=== PATIENT | female | born 1990 | race Caucasian/White ===

== ENCOUNTER → 2023-07-16 | Emergency (ER) | payer OTHER, BC ==
[~2023-07-16] MED LIST: ASPIRIN 81 MG CHEWABLE TABLET ONE; KETOROLAC 30 MG/ML INJ ONE; LORazepam 2 MG/ML VIAL ONE; NA CHLORIDE 0.9% 0 ML ONE; NA CHLORIDE 0.9% 1,000 ML ONE
--- OUTSIDE RECORDS SUMMARY | 2023-07-16 08:20 | XMS REPORT | Continuity of Care Document ---
Author Name Unknown Address [address] [facility] [address] [place] [address] [facility] thconnect Address [address] [facility] [address] [place] [address] Care Team Providers Care Color Control Operator Name Role Phone BUCK CORTEZ Primary Care Physician Tae mike GC_SWHASLWC_NguyenC Attending Clinician UnavailCOLLIN Holland Attending Clinician Unavailable Collin White MD Attending Clinician [phone] Robert Russell NP Attending Clinician [phone] Lab, Ang - Db Attending Clinician Unavailable ROBERT RUSSELL Attending Clinician Unavailbritney Kayb, Adc Lab Main Attending Clinician UnavailRima Faith MD Attending Clinician [phone] RIMA RUTHERFORD Attending Clinician Unavailable VITALIY SPICER Attending Clinician Unavailable Vitaliy Spicer MD Attending Clinician [phone] Doctor Unassigned, [place] Attending Clinician U kat Stallings MA, September Attending Clinician Unavailab christel ZAMBRANO_SWHASLWC_NguyenC Admitting Clinician COLLIN Qureshi Admitting Clinician Unavailable Payers Payer Name Policy Type Policy Number Effective Date Expirati on Date Source [employer] [id number] 2022 00:00:00 [employer] COMM[employer] OF NETWORK [id number] 2022 00:00:00 Problems Condition Name Condition Details Condition Category Status Onset Date Resolution Date Last Treatment Date Treating Clinician Comments Source Threatened Threatened Disease Active - 00:00: 00 [facility] Encounter for Nexplanon removal Encounter for Nexplanon removal Disease Active 11-10 00:00: 00 [facility] Other general counseling and advice for contracept alaina management Other general counseling and advice for contracept alaina management Disease Active 11-10 00:00: 00 [facility] Allergies, Adverse Reactions, Alerts Allergy Name Allergy Type Status Severity Reaction(s) Onset Date Inactive Date Treating Clinician Comments Source Penicill ins Propensi ty to adverse reaction s Active Hives 02-14 00:00: 00 [facility] PENICILL INS Drug Class Active Hives 02-14 00:00: 00 [facility] Penicill ins Propensi ty to adverse reaction s Active Hives - 00:00: 00 [facility] Social History Social Habit Start Date Stop Date Quantity Comments Source History SDOH Alcohol Frequency [facility] History SDOH Alcohol Std Drinks [facility] History SDOH Alcohol Binge [facility] Exposure to SARS-CoV-2 (event) 2022-08-02 00:00:00 2022-08-12 14:04:00 Not sure [facility] Alcohol intake 2022-08-02 00:00:00 2022-08-02 00:00:00 Current drinker of alcohol (finding) [facility] Tobacco use and exposure 2022-03-10 00:00:00 2022-03-10 00:00:00 Smokeless tobacco non-user [facility] Alcohol Comment 2020-09-18 00:00:00 2020-09-18 00:00:00 occasional glass of wine [facility] Sex Assigned At 1990 00:00:00 1990 00:00:00 [facility] Smoking Status Start Date Stop Date Source Never smoked tobacco [facility] Medications Ordered Medication Name Filled Medication Name Start Date Stop Date Current Medication? Ordering Clinician Indication Dosage Frequency Signature (SIG) Comments Components Source norgestimat e-ethinyl estradioL 0.25-35 mg-mcg per tablet 2021-06 2-06 00:00: 00 Yes [id number] 1{tbl} Take 1 tablet by mouth in the morning. [facility] norgestimat e-ethinyl estradioL 0.25-35 mg-mcg per tablet 2021-06 2 00:00: 00 Yes [id number] 1{tbl} Take 1 tablet by mouth in the morning. [facility] norgestimat e-ethinyl estradioL 0.25-35 mg-mcg per tablet 2021-06 2 00:00: 00 Yes [id number] 1{tbl} Take 1 tablet by mouth in the morning. [facility] norgestimat e-ethinyl estradioL 0.25-35 mg-mcg per tablet 2021-06 00:00: 00 Yes [id number] 1{tbl} Take 1 tablet by mouth in the morning. [facility] norgestimat e-ethinyl estradioL 0.25-35 mg-mcg per tablet 2021-06 00:00: 00 Yes [id number] 1{tbl} Take 1 tablet by mouth in the morning. [facility] norgestimat e-ethinyl estradioL 0.25-35 mg-mcg per tablet 2021-06 00:00: 00 Yes [id number] 1{tbl} Take 1 tablet by mouth in the morning. [facility] norgestimat e-ethinyl estradioL 0.25-35 mg-mcg per tablet 2021-06 2 00:00: 00 Yes [id number] 1{tbl} Take 1 tablet by mouth in the morning. [facility] norgestimat e-ethinyl estradioL 0.25-35 mg-mcg per tablet 2021-06 2 00:00: 00 Yes [id number] 1{tbl} Take 1 tablet by mouth in the morning. [facility] norgestimat e-ethinyl estradioL 0.25-35 mg-mcg per tablet 2021-06 2 00:00: 00 Yes [id number] 1{tbl} Take 1 tablet by mouth in the morning. [facility] norgestimat e-ethinyl estradioL 0.25-35 mg-mcg per tablet 2021-06 2- 00:00: 00 Yes [id number] 1{tbl} Take 1 tablet by mouth in the morning. [facility] norgestimat e-ethinyl estradioL 0.25-35 mg-mcg per tablet 2021-06 2- 00:00: 00 Yes [id number] 1{tbl} Take 1 tablet by mouth in the morning. [facility] norgestimat e-ethinyl estradioL 0.25-35 mg-mcg per tablet 2021-06 00:00: 00 Yes [id number] 1{tbl} Take 1 tablet by mouth in the morning. [facility] norgestimat e-ethinyl estradioL 0.25-35 mg-mcg per tablet 2021-06 00:00: 00 Yes [id number] 1{tbl} Take 1 tablet by mouth in the morning. [facility] lactic acid-citric -potassium (PHEXXI) 1.8-1-0.4 % Gel 11-05 00:00: 00 Yes [id number] 1{appli cator} Insert 1 Applicator into vagina as needed (sex). [facility] lactic acid-citric -potassium (PHEXXI) 1.8-1-0.4 % Gel 0 11-05 00:00: 00 Yes [id number] 1{appli cator} Insert 1 Applicator into vagina as needed (sex). [facility] lactic acid-citric -potassium (PHEXXI) 1.8-1-0.4 % Gel 0 11-05 00:00: 00 Yes [id number] 1{appli cator} Insert 1 Applicator into vagina as needed (sex). [facility] lactic acid-citric -potassium (PHEXXI) 1.8-1-0.4 % Gel 0 24 00:00: 00 Yes [id number] 1{appli cator} Insert 1 Applicator into vagina as needed (sex). [facility] lactic acid-citric -potassium (PHEXXI) 1.8-1-0.4 % Gel 2022-0 5-24 00:00: 00 Yes [id number] 1{appli cator} Insert 1 Applicator into vagina as needed (sex). [facility] lactic acid-citric -potassium (PHEXXI) 1.8-1-0.4 % Gel 2022-0 5-24 00:00: 00 Yes [id number] 1{appli cator} Insert 1 Applicator into vagina as needed (sex). [facility] lactic acid-citric -potassium (PHEXXI) 1.8-1-0.4 % Gel 2022-0 5-24 00:00: 00 Yes [id number] 1{appli cator} Insert 1 Applicator into vagina as needed (sex). [facility] lactic acid-citric -potassium (PHEXXI) 1.8-1-0.4 % Gel 2022-0 5-24 00:00: 00 Yes [id number] 1{appli cator} Insert 1 Applicator into vagina as needed (sex). [facility] lactic acid-citric -potassium (PHEXXI) 1.8-1-0.4 % Gel 2022-0 5-24 00:00: 00 Yes [id number] 1{appli cator} Insert 1 Applicator into vagina as needed (sex). [facility] lactic acid-citric -potassium (PHEXXI) 1.8-1-0.4 % Gel 2022-0 5-24 00:00: 00 Yes [id number] 1{appli cator} Insert 1 Applicator into vagina as needed (sex). [facility] lactic acid-citric -potassium (PHEXXI) 1.8-1-0.4 % Gel 2022-0 5-24 00:00: 00 Yes [id number] 1{appli cator} Insert 1 Applicator into vagina as needed (sex). [facility] lactic acid-citric -potassium (PHEXXI) 1.8-1-0.4 % Gel 2022-0 5-24 00:00: 00 Yes [id number] 1{appli cator} Insert 1 Applicator into vagina as needed (sex). [facility] -[facility] (PHEXXI) 1.8-1-0.4 % Gel 202-0 24 00:00: 00 Yes [id number] 1{appli cator} Insert 1 Applicator into vagina as needed (sex). [facility] acid-citric -potassium (PHEXXI) 1.8-1-0.4 % Gel 2022-0 11-05 00:00: 00 Yes [id number] 1{appli cator} Insert 1 Applicator into vagina as needed (sex). [facility] acid-citric -potassium (PHEXXI) 1.8-1-0.4 % Gel 2021-0 11-05 00:00: 00 Yes [id number] 1{appli cator} Insert 1 Applicator into vagina as needed (sex). [facility] lactic acid-citric -potassium (PHEXXI) 1.8-1-0.4 % Gel 2021-0 11-05 00:00: 00 Yes [id number] 1{appli cator} Insert 1 Applicator into vagina as needed (sex). [facility]-citric -potassium (PHEXXI) 1.8-1-0.4 % Gel 2021-0 11-05 00:00: 00 Yes [id number] 1{appli cator} Insert 1 Applicator into vagina as needed (sex). [facility] lactic acid-citric -potassium (PHEXXI) 1.8-1-0.4 % Gel 2021-0 11-05 00:00: 00 Yes [id number] 1{appli cator} Insert 1 Applicator into vagina as needed (sex). [facility] acid-citric -potassium (PHEXXI) 1.8-1-0.4 % Gel 2021-0 24 00:00: 00 Yes [id number] 1{appli cator} Insert 1 Applicator into vagina as needed (sex). [facility] acid-citric -potassium (PHEXXI) 1.8-1-0.4 % Gel 2-0 24 00:00: 00 Yes [id number] 1{appli cator} Insert 1 Applicator into vagina as needed (sex). [facility] lactic acid-citric -potassium (PHEXXI) 1.8-1-0.4 % Gel 11-05 00:00: 00 Yes [id number] 1{appli cator} Insert 1 Applicator into vagina as needed (sex). [facility] lactic acid-citric -potassium (PHEXXI) 1.8-1-0.4 % Gel 11-05 00:00: 00 11-05 00:00 :00 No 1{appli cator} Insert 1 Applicator into vagina as needed (sex). [facility] Vital Signs Vital Name Observation Time Observation Value Comments S ource Systolic blood pressure 2022-08-13 01:08:08 122 mm[Hg] [facility] Diastolic blood pressure 2022-08-13 01:08:08 84 mm[Hg] [facility] Heart rate 2022-08-13 01:08:08 92 /min [facility] Body temperature 2022-08-13 01:08:08 37.61 Maki [facility] Respiratory rate 2022-08-13 01:08:08 18 /min [facility] Body height 2022-08-12 20:07:00 172.7 cm [facility] Body weight 2022-08-12 20:07:00 90.719 kg [facility] BMI 2022-08-12 20:07:00 30.41 kg/m2 [facility] Oxygen saturation in Arterial blood by Pulse oximetry 2022-08-12 20:07:00 100 /min [facility] Systolic blood pressure 2022-07-31 19:14:00 128 mm[Hg] [facility] Diastolic blood pressure 2022-07-31 19:14:00 79 mm[Hg] [facility] Heart rate 2022-07-31 19:14:00 88 /min [facility] Body temperature 2022-07-31 19:14:00 36.72 Maki [facility] Respiratory rate 2022-07-31 19:14:00 17 /min [facility] Body height 2022-07-31 19:14:00 172.7 cm [facility] 2022-07-31 19:14:[address] [facility] BMI 2022-07-31 19:14:00 30.85 kg/m2 [facility] Systolic blood pressure 2022-07-22 17:00:00 121 mm[Hg] [facility] Diastolic blood pressure 2022-07-22 17:00:00 83 mm[Hg] [facility] Heart rate 2022-07-22 17:00:00 114 /min [facility] Body temperature 2022-07-22 17:00:00 36.72 Maki [facility] Respiratory rate 2022-07-22 17:00:00 16 /min [facility] Body height 2022-07-22 17:00:[address] [facility] Body weight 2022-07-22 17:00:[address] [facility] BMI 2022-07-22 17:00:00 30.64 kg/m2 [facility] Systolic blood pressure 2022-04-08 13:26:00 114 mm[Hg] [facility] Diastolic blood pressure 2022-04-08 13:26:00 76 mm[Hg] [facility] Heart rate 2022-04-08 13:26:00 76 /min [facility] Body temperature 2022-04-08 13:26:00 36.67 Maki [facility] Respiratory rate 2022-04-08 13:26:00 18 /min [facility] Body height 2022-04-08 13:26:[address] [facility] Body weight 2022-04-08 13:26:[address] [facility] BMI 2022-04-08 13:26:00 31.17 kg/m2 [facility] Systolic blood pressure 2022-03-10 18:54:00 122 mm[Hg] [facility] Diastolic blood pressure 2022-03-10 18:54:00 86 mm[Hg] [facility] Heart rate 2022-03-10 18:54:00 87 /min [facility] Body temperature 2022-03-10 18:54:00 36.78 Maki [facility] Respiratory rate 2022-03-10 18:54:00 16 /min [facility] Body height 2022-03-10 18:54:00 170.2 cm [facility] Body weight 2022-03-10 18:54:00 95.573 kg [facility] BMI 2022-03-10 18:54:00 33.00 kg/m2 [facility] Oxygen saturation in Arterial blood by Pulse oximetry 2022-03-10 18:54:00 96 /min [facility] Systolic blood pressure 2021-11-05 20:10:00 107 mm[Hg] [facility] Diastolic blood pressure 2021-11-05 20:10:00 74 mm[Hg] [facility] Heart rate 2021-11-05 20:10:00 67 /min [facility] Body temperature 2021-11-05 20:10:00 36.78 Maki [facility] Respiratory rate 2021-11-05 20:10:00 16 /min [facility] Body height 2021-11-05 20:10:00 170.2 cm [facility] Body weight 2021-11-05 20:10:00 96.616 kg [facility] BMI 2021-11-05 20:10:00 33.36 kg/m2 [facility] Oxygen saturation in Arterial blood by Pulse oximetry 2021-11-05 20:10:00 98 /min [facility] Procedures Procedure Date / Time Performed Performing Clinician Source US FIRST TRIMESTER LESS THAN 14 WEEKS WITH TRANSVAGINAL 2022-08-12 23:31:16 Collin White [facility] COMP. METABOLIC PANEL ([id number]) 2022-08-12 20:20:00 Collin White [facility] TOTAL BETA HCG ASSAY 2022-08-12 20:20:00 Collin White [facility] CBC WITH DIFF 2022-08-12 20:20:[address] [facility] URINALYSIS 2022-08-12 20:20:00 Collin White [facility] CONSENT/REFUSAL FOR DIAGNOSIS AND TREATMENT 2022-08-12 19:42:25 Doctor Unassigned, [place] [facility] FIRST TRIMESTER LESS THAN 14 WEEKS WITH TRANSVAGINAL 2022-07-31 23:09:55 Robert Russell [facility] POCT TEST 2022-07-31 00:00:00 Ela Russell [facility] ASSIGNMENT OF BENEFITS 2022-03-10 18:41:33 Thoto jose roberto Unassigned, [place] [facility] Encounters Start Date/Time End Date/Time Encounter Type Admission Type Attending [facility] Facility Care Department Encounter ID Source 2023-01-24 00:00:00 2023-01-24 00:00:00 Outpatient GC_SWHASLWC _NguyenC PRIV PRIV [id number] [facility] 2022-12-27 00:00:00 2022-12-27 00:00:00 Outpatient GC_SWHASLWC _NguyenC PRIV PRIV [id number] [facility] 2022-11-29 00:00:00 2022-11-29 00:00:00 Outpatient GC_SWHASLWC _NguyenC PRIV PRIV [id number] [facility] 2022-11-12 00:00:00 2022-11-12 00:00:00 Outpatient GC_SWHASLWC _NguyenC PRIV PRIV [id number] [facility] 2022-11-06 00:00:00 2022-11-06 00:00:00 Outpatient GC_SWHASLWC _NguyenC PRIV PRIV [id number] [facility] 2022-11-03 00:00:00 2022-11-03 00:00:00 Outpatient GC_SWHASLWC _NguyenC PRIV PRIV [id number] [facility] 2022-08-12 14:07:00 2022-08-12 19:43:00 Emergency X VASUT, COLLIN [facility] ERT [id number] [facility] 2022-08-12 14:07:00 2022-08-12 19:43:00 Emergency Vasut, Collin J [facility] 1..840.114 350.1.13.10 4.2.7.2.686 [id number] [facility] 2022-08-12 00:00:00 2022-08-12 00:00:00 [facility] 1..840.114 350.1.13.10 4.2.7.2.686 [id number] [facility] 2022-08-07 16:00:00 2022-08-07 16:00:00 Outpatient R [facility] [id number] [facility] 2022-08-07 13:15:00 2022-08-07 13:30:00 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 Visit Pob, Adc Lab Main [facility] 1.2.840.114 350.1.13.10 4.2.7.2.686 [id number] [facility] 2022-07-31 13:30:00 2022-07-31 13:30:00 Initial Visit Robert Russell [facility] 1.2.840.114 350.1.13.10 4.2.7.2.686 [id number] [facility] 2022-07-31 13:30:00 2022-07-31 13:26:13 Outpatient R ROBERT RUSSELL [facility] [id number] [facility] 2022-07-29 00:00:00 2022-07-29 00:00:00 [facility] 1.2.840.114 350.1.13.10 4.2.7.2.686 [id number] [facility] 2022-07-22 10:30:00 2022-07-22 11:00:00 Office Visit Rima Rutherford [facility] 1.2.840.114 350.1.13.10 4.2.7.2.686 [id number] [facility] 2022-07-22 10:30:00 2022-07-22 10:30:00 Outpatient R HUYEN [facility] [id number] [facility] 2022-07-09 09:00:00 2022-07-09 09:00:00 Outpatient R RIMA RUTHERFORD [facility] [id number] [facility] 2022-05-19 00:00:00 2022-05-19 00:00:00 Telephone Adum, Rima Beckham [facility] 1.114 350.1.13.10 4.2.7.2.686 [id number] [facility] 2022-04-08 08:30:00 2022-04-08 08:44:54 Office Visit Adum, Rima Beckham [facility] 1..114 350.1.13.10 4.2.7.2.686 [id number] [facility] 2022-04-08 08:30:00 2022-04-08 08:44:54 Outpatient R HUYEN [facility] [id number] [facility] 2022-03-19 00:00:00 2022-03-19 00:00:00 Outpatient R VITALIY SPICER [facility] [id number] [facility] 2022-03-12 08:30:00 2022-03-12 08:34:22 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 Visit Lab, Keanu Keenan [facility] 1.84.114 350.1.13.10 4.2.7.2.686 [id number] [facility] 2022-03-12 08:30:00 2022-03-12 08:30:00 Outpatient R VITALIY SPICER [facility] [id number] [facility] 2022-03-10 14:00:00 2022-03-10 14:25:50 Outpatient R VITALIY SPICER [facility] [id number] [facility] 2022-03-10 14:00:00 2022-03-10 14:25:50 Office Visit Nayan Vitaliy [facility] 1.2.114 350.1.13.10 4.2.7.2.686 [id number] [facility] 2022-03-10 00:00:00 2022-03-10 00:00:00 Orders Only Doctor Unassigned, [place] [facility] 1.2.840.114 350.1.13.10 4.2.7.2.686 [id number] [facility] 2021-11-05 15:00:00 2021-11-05 16:20:14 Outpatient R FIDENCIO SPICERN [facility] [id number] [facility] 2021-11-05 15:00:00 2021-11-05 16:20:14 Office Visit Fidencio Spicern [facility] 1.2.840.114 350.1.13.10 4.2.7.2.686 [id number] [facility] 2021-11-05 00:00:00 2021-11-05 00:00:00 Orders Only Doctor Unassigned, [place] [facility] 1.2.840.114 350.1.13.10 4.2.7.2.686 [id number] [facility] 2021-07-02 00:00:00 2021-07-02 00:00:00 Orders Only Doctor Unassigned, [place] [facility] 1.2.840.114 350.1.13.10 4.2.7.2.686 [id number] [facility] 2021-06-27 00:00:00 2021-06-27 00:00:00 Pre Visit Outreach Stallings, Shara Britney [facility] 1.2.840.114 350.1.13.10 4.2.7.2.686 [id number] [facility] 2020-09-18 10:30:00 2020-09-18 10:30:00 Outpatient R NAYAN VITALIY [facility] [id number] [facility] 2020-09-18 00:00:00 2020-09-18 00:00:00 Orders Only Doctor Unassigned, [place] [facility] 1.2.840.114 350.1.13.10 4.2.7.2.686 [id number] [facility] Results Test Description Test Time Test Comments Results Result Co mments Source [facility]63434[facility]2022-08-12 21:03:24* Test Item Value Reference Range Interpretation Comme nts NA (test code = 4986600053) 136 mmol/L 135-145 K (test code = 9627098013) 3.7 mmol/L 3.5-5.0 CL (test code = 4032904974) 102 mmol/L 98-108 CO2 TOTAL (test code = 9731884691) 25 mmol/L 23-31 AGAP (test code = 5306771036) 9 2-16 BUN (test code = 3097102909) 17 mg/dL 7-23 GLUCOSE (test code = 3226414237) 102 mg/dL 70-110 CREATININE (test code = 5237893157) 0.84 mg/dL 0.50-1.04 TOTAL BILI (test code = 8416380133) 0.7 mg/dL 0.1-1.1 CALCIUM (test code = 3288895451) 8.8 mg/dL 8.6-10.6 T PROTEIN (test code = 3876693668) 7.4 g/dL 6.3-8.2 ALBUMIN (test code = 1825531876) 4.3 g/dL 3.5-5.0 ALK PHOS (test code = 9493142646) 38 U/L 34-122 ALTv (test code = 1742-6) 17 U/L 5-35 AST(SGOT) (test code = 1408645126) 20 U/L 13-40 eGFR (test code = 9078898507) 78.1 mL/min/1.73m2 HAYDER (test code = HAYDER) Association of Glomerular Filtration Rate (GFR) and Staging of Kidney Disease* + + +- +| GFR (mL/min/1.73 m2) ?| With Kidney Damage ?| ?Without Kidney Damage+ ------+ ----+ ------+| ?>90 ?| ?Stage one ?| ? Normal ?+ -+ + -+| ?60-89 ?| ?Stage two ?| ? Decreased GFR ? + + +- +| ?30-59 ?| ?Stage three ?| ? Stage three ? + + +- +| ?15-29 ?| ?Stage four ? | ? Stage four ?+ -+ + -+| ?<15 (or dialysis) ? ?| ?Stage five ? | ? Stage five ?+ -+ + -+ *Each stage assumes the associated GFR level has been in effect for at least three months. ?Stages 1 to 5, with or without kidney disease, indicate chronic kidney disease. Notes: Determination of stages one and two (with eGFR >59mL/min/1.73 m2) requires estimation of kidney damage for at least three months as defined by structural or functional abnormalities of the kidney, manifested by either:Pathological abnormalities or Markers of kidney damage (including abnormalities in the composition of the blood or urine or abnormalities in imaging tests). [facility] WITH [id number] 20:36:51* Test Item Value Reference Range Interpretation Comme nts WBC (test code = 6690-2) 11.60 See_Comment H [Automated [employer]BlueBook] The system which generated this result transmitted reference range: 4.30 - 11.10 10*3/?L. The reference range was not used to interpret this result as normal/abnormal. RBC (test code = 789-8) 4.25 See_Comment [Automated [employer]] The system which generated this result transmitted reference range: 3.93 - 5.25 10*6/?L. The reference range was not used to interpret this result as normal/abnormal. HGB (test code = 718-7) 12.7 g/dL 11.6-15.0 HCT (test code = 4544-3) 37.7 % 35.7-45.2 MCV (test code = 787-2) 88.7 fL 80.6-95.5 MCH (test code = 785-6) 29.9 pg 25.9-32.8 MCHC (test code = 786-4) 33.7 g/dL 31.6-35.1 RDW-SD (test code = 95562-5) 40.4 fL 39.0-49.9 RDW-CV (test code = 788-0) 12.5 % 12.0-15.5 PLT (test code = 777-3) 197 See_Comment [Automated messa ge] The system which generated this result transmitted reference range: 166 - 358 10*3/?L. The reference range was not used to interpret this result as normal/abnormal. MPV (test code = 52385-0) 9.6 fL 9.5-12.9 NRBC/100 WBC (test code = 1399594593) 0.0 See_Comment [Automated [employer] ssage] The system which generated this result transmitted reference range: 0.0 - 10.0 /100 WBCs. The reference range was not used to interpret this result as normal/abnormal. NRBC x10^3 (test code = 8014084922) See_Comment [Automated [employer] ge] The system which generated this result transmitted reference range: 10*3/?L. The reference range was not used to interpret this result as normal/abnormal. GRAN MAT (NEUT) % (test code = 770-8) 77.8 % IMM GRAN % (test code = 9341069778) 0.30 % LYMPH % (test code = 736-9) 15.5 % MONO % (test code = 5905-5) 3.8 % EOS % (test code = 713-8) 2.2 % BASO % (test code = 706-2) 0.4 % GRAN MAT x10^3(ANC) (test code = 1313415807) 9.03 10*3/uL 1.88-7.09 H IMM GRAN x10^3 (test code = 5624612467) 0.03 10*3/uL 0.00-0.06 LYMPH x10^3 (test code = 731-0) 1.80 10*3/uL 1.32-3.29 MONO x10^3 (test code = 742-7) 0.44 10*3/uL 0.33-0.92 EOS x10^3 (test code = 711-2) 0.25 10*3/uL 0.03-0.39 BASO x10^3 (test code = 704-7) 0.05 10*3/uL 0.01-0.07 Lab Interpretation (test code = 62566-1) [id number]14[facility]00* Test Item Value Reference Range Interpretation Comme nts POCT PREG (test code = 1605) Positive On board controls acceptable with C Line (test code = 3574) Yes POCT PREG LOT # (test code = 3575) POCT PREG TEST DATE ( test code = 3576) [facility]"
[2023-07-16 08:55] LABS: Absolute Lymphocytes (CBC) 1.9 K/uL (0.7-4.9); Hematocrit 38.4 % (36.0-45.0); Lymphocytes % 22.2 % (15.3-44.8); MCV 87.9 fL (80-100); Platelets 192 thou/uL (152-406); RBC Red Blood Cell Count 4.36 M/uL (3.86-4.86)
[2023-07-16 09:19] LABS: Albumin 3.3 g/dL (3.4-5.0); Bilirubin Direct 0.2 mg/dL (0-0.2); Bilirubin Indirect, Calculated 0.4 mg/dL (0.2-0.8); Bilirubin Total 0.6 mg/dL (0.2-1.0); Magnesium 2.1 mg/dL (1.6-2.4); Potassium 3.6 mEq/L (3.5-5.1); Troponin High Sensitivity 3.2 pg/mL (<58.9)
--- NOTE | 2023-07-16 09:33 | RAD REPORT ---
EXAM DESCRIPTION: CT - Chest For Pe Angio - 07/16/2023 9:25 am CLINICAL HISTORY: CHEST PAIN COMPARISON: No comparisons TECHNIQUE: Dynamically enhanced axial 3 mm thick images of the chest were obtained during administra tion of <100> mL Isovue 370 IV contrast. Coronal and oblique reconstruction images were generated and reviewed. Exam utilizes a protocol for optimal evaluation of pulmonary arterial tree. Maximum intensity projections 3D imaging was utilized All CT scans are performed using dose optimization technique as appropriate and may include automated exposure control or mA/KV adjustment according to patient size. FINDINGS: Chest Wall: No suspicious thyroid nodules or pathologic lymphadenopathy. Lungs: No acute abnormality. Pleura: No significant effusions or pneumothorax. Mediastinum/gucci: No pathologic lymphadenopathy. Pulmonary arteries/Aorta: No filling defect identified. No aortic aneurysm. Heart: No significant pericardial effusion. Normal heart size. Upper abdomen: No acute abnormality. Bones: No acute abnormality. IMPRESSION: Negative for pulmonary embolism. No acute findings in the chest.
--- NOTE | 2023-07-16 09:37 | RAD REPORT ---
EXAM DESCRIPTION: RAD - Chest Single View - 07/16/2023 9:30 am CLINICAL HISTORY: CHEST PAIN COMPARISON: No comparisons FINDINGS: Lines: None. Lungs: No evidence of edema or pneumonia. Pleural: No significant pleural effusions or pneumothorax. Cardiac: The heart size is within normal limits. Mediastinum: Within normal limits. Bones: No acute fractures. Other: None IMPRESSION: No acute cardiopulmonary disease.
--- NOTE | 2023-07-16 10:27 | ER ---
Nurse's Notes [facility] Name: Fiona Azar Age: 32 yrs Sex: Female : 1990 Arrival Date: 07/16/2023 Time: 08:17 Bed 6 Private MD: Diagnosis: Chest pain on breathing;Chest pain, unspecified Presentation: 07/16 08:31 Chief complaint: Patient states: L sided CP since Thursday night. Pain got sharper with ll1 palpitations throughout the night. Coronavirus screen: Client denies travel out of the [place] in the last 14 days. At this time, the client does not indicate any symptoms associated with coronavirus-19. Ebola Screen: Patient denies travel to an Ebola-affected area in the 21 days before illness onset. Initial Sepsis Screen: Does the patient meet any 2 criteria? No. Patient's initial sepsis screen is negative. Does the patient have a suspected source of infection? No. Patient's initial sepsis screen is negative. Risk Assessment: Do you want to hurt yourself or someone else? Patient reports no desire to harm self or others. Onset of symptoms was July 13, 2023. 08:31 Method Of Arrival: Ambulatory ll1 08:31 Acuity: BRAYDEN 3 ll1 Triage Assessment: 08:33 General: Appears in no apparent distress. Behavior is calm, cooperative, appropriate ll1 for age. Pain: Complains of pain in L chest Quality of pain is described as aching, pressure, sharp. Cardiovascular: Reports chest pain. 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 - Social history:: Smoking status: Patient denies any tobacco usage or history of. Screenin:45 [facility] ED Fall Risk Assessment (Adult) History of falling in the last 3 months, db including since admission No falls in past 3 months (0 pts) Confusion or Disorientation No (0 pts) Intoxicated or Sedated No (0 pts) Impaired Gait No (0 pts) Mobility Assist Device Used No (0 pt) Altered Elimination No (0 pt) Score/Fall Risk Level 0 - 2 = Low Risk Oriented to surroundings, Maintained a safe environment. Abuse screen: Denies threats or abuse. Denies injuries from another. Nutritional screening: On. Tuberculosis screening: No symptoms or risk factors identified. Assessment: 08:57 Reassessment: Patient appears in no apparent distress at this time. Patient and/or db family updated on plan of care and expected duration. Pain level reassessed. Patient is alert, oriented x 3, equal unlabored respirations, skin warm/dry/pink. Reassessment: COMPLAINS OF CHEST PAIN SINCE THURSDAY STATES IS UNDER A LOT OF STRESS. STATES ALSO HAS A HEADACHE SIMILAR TO STRESS. General: Appears in no apparent distress. comfortable, Behavior is calm, cooperative. Pain: Complains of pain in chest Pain does not radiate. Pain began gradually, 2-3 days ago. Neuro: Level of Consciousness is awake, alert, obeys commands, Oriented to person, place, time, situation. Respiratory: Airway is patent Respiratory effort is even, unlabored, Respiratory pattern is regular, symmetrical. 09:57 Reassessment: Patient appears in no apparent distress at this time. No changes from kc6 previously documented assessment. Patient and/or family updated on plan of care and expected duration. Pain level reassessed. Patient is alert, oriented x 3, equal unlabored respirations, skin warm/dry/pink. Vital Signs: 08:31 BP 125 / 86; Pulse 76; Resp 17; Temp 98.3; Pulse Ox 100% ; Weight 90.72 kg; Height 5 ll1 ft. 8 in. ; Pain 6/10; 08:45 BP 111 / 72; Pulse 68; Resp 18; Pulse Ox 100% on R/A; db 10:12 BP 109 / 71; Pulse 73; Resp 18 S; Pulse Ox 100% on R/A; kc6 08:31 Body Mass Index 30.41 (90.72 kg, 172.72 cm) ll1 08:31 Pain Scale: Adult ll1 ED Course: 08:22 Patient arrived in ED. ra3 08:24 Arm band placed on Patient placed in an exam room, on a stretcher. ll1 08:29 Zenon Morris MD is Attending Physician. octavio 08:33 Triage completed. ll1 08:34 Taylor Valdez, RN is Primary Nurse. db 08:45 Patient has correct armband on for positive identification. Bed in low position. Call db light in reach. Side rails up X 1. Provided Education on:. Client placed on continuous cardiac and pulse oximetry monitoring. NIBP monitoring applied. 08:49 Inserted saline lock: 22 gauge in right antecubital area, using aseptic technique. ds4 Blood collected. 09:27 CT Chest For PE Angio In Process Unspecified. EDMS 09:32 XRAY Chest (1 view) In Process Unspecified. EDCT 10:26 Singh Whyte MD is Referral Physician. [facility] 10:45 No provider procedures requiring assistance completed. intact, bleeding controlled, No cp4 redness/swelling at site. Pressure dressing applied. Patient maintains SpO2 saturation greater than 95% on room air. Administered Medications: 08:40 Drug: Aspirin PO Chewable Tablet 81 mg PO once Route: PO; db 10:44 Follow up: Response: No adverse reaction cp4 08:40 Drug: Ativan IVP 0.5 mg IVP once Route: IVP; Site: right antecubital; db 10:45 Follow up: Response: No adverse reaction cp4 08:56 Drug: NS 0.9% IV 1000 ml IV at 1 bolus Per protocol; 1000 mL bolus Route: IV; Rate: 1 db bolus; Site: right antecubital; 10:45 Follow up: Response: No adverse reaction; IV Status: Completed infusion cp4 10:39 Drug: Ketorolac IVP 30 mg IVP once Route: IVP; Site: right antecubital; cp4 10:45 Follow up: Response: No adverse reaction cp4 Medication: 10:45 VIS not applicable for this client. cp4 Outcome: 10:27 Discharge ordered by . octavio 10:45 Discharged to home ambulatory, cp4 10:45 Condition: stable 10:45 Discharge instructions given to patient, Instructed on discharge instructions, follow up and referral plans. medication usage, Demonstrated understanding of instructions, follow-up care, medications, Prescriptions given X 2, 10:49 Patient left the ED. cp4 Signatures: Dispatcher [employer] Zenon Oconnell MD MD cha Swanson, Donovan ds4 Homero Rios RN RN ll1 Lolis Araujo RN RN kc6 Taylor Valdez RN RN Janee Calderon cp4 Chaya Mohr ra3
--- NOTE | 2023-07-16 10:27 | EDPHYS ---
Physician Documentation [facility] Name: Fiona Azar Age: 32 yrs Sex: Female : 1990 Arrival Date: 07/16/2023 Time: 08:17 Bed 6 Private MD: JUSTYNA Physician Zenon Morris HPI: 07/16 10:20 This 32 yrs old Female presents to ER via Ambulatory with complaints of Chest octavio Pain. 10:20 The patient or guardian reports chest pain that is located primarily in the anterior octavio chest wall, left. The pain does not radiate. Associated signs and symptoms: The patient has no apparent associated signs or symptoms. The chest pain is described as sharp. Duration: The patient or guardian reports multiple episodes, that are intermittent. Modifying factors: The symptoms are alleviated by remaining still, the symptoms are aggravated by deep breath, palpation of area. Severity of pain: At its worst the pain was mild in the emergency department the pain is unchanged. The patient has not experienced similar symptoms in the past. 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 - Social history:: Smoking status: Patient denies any tobacco usage or history of. ROS: 10:21 Constitutional: Negative for fever, chills, and weight loss, Eyes: Negative for injury, octavio pain, redness, and discharge, ENT: Negative for injury, pain, and discharge, Neck: Negative for injury, pain, and swelling, Cardiovascular: Negative for chest pain, palpitations, and edema, Abdomen/GI: Negative for abdominal pain, nausea, vomiting, diarrhea, and constipation, Back: Negative for injury and pain, : Negative for injury, bleeding, discharge, and swelling, MS/Extremity: Negative for injury and deformity, Skin: Negative for injury, rash, and discoloration, Neuro: Negative for headache, weakness, numbness, tingling, and seizure, Psych: Negative for depression, anxiety, suicide ideation, homicidal ideation, and hallucinations, Allergy/Immunology: Negative for hives, rash, and allergies, Endocrine: Negative for neck swelling, polydipsia, polyuria, polyphagia, and marked weight changes, Hematologic/Lymphatic: Negative for swollen nodes, abnormal bleeding, and unusual bruising, 10:21 Respiratory: Positive for cough, with no reported sputum, pleurisy, of the anterior aspect of left upper chest, left lateral posterior chest, left lateral anterior chest and left breast, Exam: 10:21 Constitutional: This is a well developed, well nourished patient who is awake, alert, octavio and in no acute distress. Head/Face: Normocephalic, atraumatic. Eyes: Pupils equal round and reactive to light, extra-ocular motions intact. Lids and lashes normal. Conjunctiva and sclera are non-icteric and not injected. Cornea within normal limits. Periorbital areas with no swelling, redness, or edema. ENT: Nares patent. No nasal discharge, no septal abnormalities noted. Tympanic membranes are normal and external auditory canals are clear. Oropharynx with no redness, swelling, or masses, exudates, or evidence of obstruction, uvula midline. Mucous membranes moist. Neck: Trachea midline, no thyromegaly or masses palpated, and no cervical lymphadenopathy. Supple, full range of motion without nuchal rigidity, or vertebral point tenderness. No Meningismus. Chest/axilla: Normal chest wall appearance and motion. Nontender with no deformity. No lesions are appreciated. Cardiovascular: Regular rate and rhythm with a normal S1 and S2. No gallops, murmurs, or rubs. Normal PMI, no JVD. No pulse deficits. Respiratory: Lungs have equal breath sounds bilaterally, clear to auscultation and percussion. No rales, rhonchi or wheezes noted. No increased work of breathing, no retractions or nasal flaring. Abdomen/GI: Soft, non-tender, with normal bowel sounds. No distension or tympany. No guarding or rebound. No evidence of tenderness throughout. Back: No spinal tenderness. No costovertebral tenderness. Full range of motion. Skin: Warm, dry with normal turgor. Normal color with no rashes, no lesions, and no evidence of cellulitis. MS/ Extremity: Pulses equal, no cyanosis. Neurovascular intact. Full, normal range of motion. Neuro: Awake and alert, GCS 15, oriented to person, place, time, and situation. Cranial nerves II-XII grossly intact. Motor strength 5/5 in all extremities. Sensory grossly intact. Cerebellar exam normal. Normal gait. Psych: Awake, alert, with orientation to person, place and time. Behavior, mood, and affect are within normal limits. 10:21 ECG was reviewed by the Attending Physician. 10:21 Musculoskeletal/extremity: DVT Exam: No signs of deep vein thrombosis. no pain, no swelling, no tenderness, negative Homans' sign noted on exam, no appreciated bluish discoloration, no erythema, no increased warmth, Vital Signs: 08:31 BP 125 / 86; Pulse 76; Resp 17; Temp 98.3; Pulse Ox 100% ; Weight 90.72 kg; Height 5 ll1 ft. 8 in. ; Pain 6/10; 08:45 BP 111 / 72; Pulse 68; Resp 18; Pulse Ox 100% on R/A; db 10:12 BP 109 / 71; Pulse 73; Resp 18 S; Pulse Ox 100% on R/A; kc6 08:31 Body Mass Index 30.41 (90.72 kg, 172.72 cm) ll1 08:31 Pain Scale: Adult ll1 MDM: 08:29 Patient medically screened. octavio 10:24 Differential diagnosis: abnormal EKG, acute myocardial infarction, acute pericarditis, octavio chest wall pain, congestive heart failure cholecystitis, Cholelithiasis costochondritis, arrythmia, dehydration, esophagitis, gastritis, pancreatitis, pericarditis, pleurisy, pulmonary embolus, stable angina, thoracic aortic disection, unstable angina. HEART Score: History: Slightly Suspicious (0), ECG: Normal (0), Age: < or = 45 years (0), Risk Factors: No Risk Factors Known (0), Troponin: < or = 1 x Normal Limit (0). BENY Risk Score: TOTAL SCORE = 0. Data reviewed: vital signs, nurses notes, lab test result(s), EKG, radiologic studies, CT scan, plain films. Consideration of Admission/Observation Escalation of care including admission/observation considered. I considered the following discharge prescriptions or medication management in the emergency department Medications were administered in the Emergency Department. See MAR. Independent interpretation of the following test(s) in the Emergency Department EKG: See my EKG interpretation above. Test considered but Not performed: Ultrasound NO 2 D ECHO. Care significantly affected by the following chronic conditions: NO HX. 07/16 08:30 Order name: Basic Metabolic Panel; Complete Time: 10:16 [facility] 07/16 08:30 Order name: CBC with Diff; Complete Time: 10:16 [facility] 07/16 08:30 Order name: LFT's; Complete Time: 10:16 [facility] 07/16 08:30 Order name: Magnesium; Complete Time: 10:16 [facility] 07/16 08:30 Order name: NT PRO-BNP; Complete Time: 10:16 [facility] 07/16 08:30 Order name: Troponin HS; Complete Time: 10:16 [facility] 07/16 08:30 Order name: Lipase; Complete Time: 10:16 [facility] 07/16 08:30 Order name: XRAY Chest (1 view); Complete Time: 10:16 [facility] 07/16 09:03 Order name: CT Chest For PE Angio; Complete Time: 10:16 [facility] 07/16 08:30 Order name: EKG; Complete Time: 08:31 [facility] 07/16 08:30 Order name: Cardiac monitoring; Complete Time: 08:49 [facility] 07/16 08:30 Order name: EKG - Nurse/Tech; Complete Time: 08:49 [facility] 07/16 08:30 Order name: IV Saline Lock; Complete Time: 08:49 [facility] 07/16 08:30 Order name: Labs collected and sent; Complete Time: 08:49 [facility] 07/16 08:30 Order name: O2 Per Protocol; Complete Time: 08:49 [facility] 07/16 08:30 Order name: O2 Sat Monitoring; Complete Time: 08:49 [facility] EC:21 Rate is 71 beats/min. Rhythm is regular. QRS [place] is Normal. DC interval is normal. QRS octavio interval is normal. QT interval is normal. No Q waves. T waves are Normal. No ST changes noted. Clinical impression: NSR w/ Non-specific ST/T Changes and No evidence of ischemia. Interpreted by me. Reviewed by me. Administered Medications: 08:40 Drug: Aspirin PO Chewable Tablet 81 mg PO once Route: PO; db 10:44 Follow up: Response: No adverse reaction cp4 08:40 Drug: Ativan IVP 0.5 mg IVP once Route: IVP; Site: right antecubital; db 10:45 Follow up: Response: No adverse reaction cp4 08:56 Drug: NS 0.9% IV 1000 ml IV at 1 bolus Per protocol; 1000 mL bolus Route: IV; Rate: 1 db bolus; Site: right antecubital; 10:45 Follow up: Response: No adverse reaction; IV Status: Completed infusion cp4 10:39 Drug: Ketorolac IVP 30 mg IVP once Route: IVP; Site: right antecubital; cp4 10:45 Follow up: Response: No adverse reaction cp4 Disposition Summary: 07/16/23 10:27 Discharge Ordered Notes: Location: Home [facility] Problem: new octavio Symptoms: have improved octavio Condition: Stable octavio Diagnosis - Chest pain on breathing octavio - Chest pain, unspecified octavio Followup: octavio - With: Private Physician - When: 2 - 3 days - Reason: Recheck today's complaints, Continuance of care, Re-evaluation by your physician Followup: octavio - With: Singh Whyte MD - When: 2 - 3 days - Reason: Recheck today's complaints, Re-evaluation by your physician Discharge Instructions: - Discharge Summary Sheet [facility] - Nonspecific Chest Pain, Adult [facility] - Chest Wall Pain [facility] - Costochondritis [facility] - Chest Wall Pain, [id number] [facility] - Nonspecific Chest Pain, Adult, [id number] [facility] - Aspirin and Your Heart [facility] Forms: - Medication Reconciliation Form [facility] - Thank You Letter [facility] - Antibiotic Education [facility] - Prescription Opioid Use [facility] - Patient Portal Instructions [facility] - Leadership Thank You Letter [facility] Prescriptions: - Ibuprofen 600 mg Oral Tablet - take 1 tablet ORAL route every 6 hours As needed take with food; 30 tablet; [facility] Refills: 0, Product Selection Permitted - Pepcid 20 mg Oral tablet - take 1 tablet ORAL route every 12 hours for 21 days; 42 tablet; Refills: 0, [facility] Product Selection Permitted Signatures: Dispatcher [employer] Zenon Oconnell MD MD cha Lewis, Lynsay, RN RN ll1 Taylor Valdez RN RN Janee Calderon cp4
[2023-07-16 11:15] VITALS: TEMP 98.3; O2SAT 100
[2023-07-16 11:34] VITALS: BP 109/71
--- NOTE | 2023-07-20 15:15 | EKG ---
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
== END ==
LOC: ER 08:17
DX: R07.1 Chest pain on breathing (principal); R05.9 Cough, unspecified; Z88.0 Allergy status to penicillin; Z88.1 Allergy status to other antibiotic agents
CPT/HCPCS: 93005; 85025; 80048; 36415; 83735; 80076; 84484; 83690; 83880; 71275; 71045; Q9967; J7030

== ENCOUNTER → 2023-09-02 | Emergency (ER) | payer OTHER ==
[~2023-09-02] MED LIST changes: +ACETAMINOPHEN 500 MG TAB ONE; -ASPIRIN 81 MG CHEWABLE TABLET ONE; +CEFTRIAXONE 1000 MG/VIAL ONE; +DIPHENHYDRAMINE 50 MG/ML VIAL ONE; +DOXYCYCLINE HYCLATE 100MG INJ ONE; -KETOROLAC 30 MG/ML INJ ONE; -LORazepam 2 MG/ML VIAL ONE; +METOCLOPRAMIDE 10 MG/2mL INJ ONE; +METRONIDAZOLE 500mg IVPB 500 MG/100 ML BAG IV ONE; -NA CHLORIDE 0.9% 0 ML ONE; +NA CHLORIDE 0.9% 100 ML ONE; +ONDANSETRON 4 MG/2 ML VIAL ONE
--- OUTSIDE RECORDS SUMMARY | 2023-09-02 09:36 | XMS REPORT | Continuity of Care Document ---
Author Name Unknown Address [address] [facility] [address]. [address] [place] [address] [facility] thconnect Address [address] [facility]. [address] [place] [address] Care Team Providers Care Dormitory Supervisor Name Role Phone BUCK CORTEZ Primary Care Physician Tae mike GC_SWHASLWC_NguyenC Attending Clinician UnavailCOLLIN Holland Attending Clinician Unavailable Collin White MD Attending Clinician [phone] Robert Russell NP Attending Clinician [phone] Lab, Ang - Db Attending Clinician Unavailable ROBERT RUSSELL Attending Clinician Unavailbritney Kayb, Adc Lab Main Attending Clinician UnavailRima Faith MD Attending Clinician [phone] RIMA RUTHERFORD Attending Clinician Unavailable VITALIY SPICER Attending Clinician Unavailable Vitaliy Spicer MD Attending Clinician [phone] Doctor Unassigned, [place] Attending Clinician U kat Stallings , September Attending Clinician aDljit kearney GC_SWHASLWC_NguyenC Admitting Clinician COLLIN Qureshi Admitting Clinician Unavailable Payers Payer Name Policy Type Policy Number Effective Date Expirati on Date Source [employer] [id number] 2022 00:00:00 [employer] COMMERCIAL OUT OF NETWORK [id number] 2022 00:00:00 Problems Condition Name Condition Details Condition Category Status Onset Date Resolution Date Last Treatment Date Treating Clinician Comments Source Threatened Threatened Disease Active 2-16 00:00: 00 [facility] Encounter for Nexplanon removal Encounter for Nexplanon removal Disease Active 11-10 00:00: 00 [facility] Other general counseling and advice for contracept alaina management Other general counseling and advice for contracept alaina management Disease Active 11-10 00:00: 00 [facility] Allergies, Adverse Reactions, Alerts Allergy Name Allergy Type Status Severity Reaction(s) Onset Date Inactive Date Treating Clinician Comments Source Penicill ins Propensi ty to adverse reaction s Active Hives - 00:00: 00 [facility] PENICILL INS Drug Class Active Hives 02-14 00:00: 00 [facility] Penicill ins Propensi ty to adverse reaction s Active Hives - 00:00: 00 [facility] Social History Social Habit Start Date Stop Date Quantity Comments Source History SDOH Alcohol Frequency [facility] History SDOH Alcohol Std Drinks [facility] History SDOH Alcohol Binge [facility] Exposure to SARS-CoV-2 (event) 2022-08-02 00:00:00 2022-08-12 14:04:00 Not sure [facility] Alcohol intake 2022-08-02 00:00:00 2022-08-02 00:00:00 Current drinker of alcohol (finding) [facility] Tobacco use and exposure 2022-03-10 00:00:00 2022-03-10 00:00:00 Smokeless tobacco non-user [facility] Alcohol Comment 2020-09-18 00:00:00 2020-09-18 00:00:00 occasional glass of wine [facility] Sex Assigned At 1990 00:00:00 1990 00:00:00 [facility] Smoking Status Start Date Stop Date Source Never smoked tobacco [facility] Medications Ordered Medication Name Filled Medication Name Start Date Stop Date Current Medication? Ordering Clinician Indication Dosage Frequency Signature (SIG) Comments Components Source norgestimat e-ethinyl estradioL 0.25-35 mg-mcg per tablet 2021-06 2-06 00:00: 00 Yes [id number] 1{tbl} Take 1 tablet by mouth in the morning. [facility] norgestimat e-ethinyl estradioL 0.25-35 mg-mcg per tablet 2021-06 2 00:00: 00 Yes [id number] 1{tbl} Take 1 tablet by mouth in the morning. [facility] norgestimat e-ethinyl estradioL 0.25-35 mg-mcg per tablet 2021-06 00:00: 00 Yes [id number] 1{tbl} Take 1 tablet by mouth in the morning. [facility] norgestimat e-ethinyl estradioL 0.25-35 mg-mcg per tablet 2021-06 00:00: 00 Yes [id number] 1{tbl} Take 1 tablet by mouth in the morning. [facility] norgestimat e-ethinyl estradioL 0.25-35 mg-mcg per tablet 2021-06 00:00: 00 Yes [id number] 1{tbl} Take 1 tablet by mouth in the morning. [facility] norgestimat e-ethinyl estradioL 0.25-35 mg-mcg per tablet 2021-06 00:00: 00 Yes [id number] 1{tbl} Take 1 tablet by mouth in the morning. [facility] norgestimat e-ethinyl estradioL 0.25-35 mg-mcg per tablet 2021-06 00:00: 00 Yes [id number] 1{tbl} Take 1 tablet by mouth in the morning. [facility] norgestimat e-ethinyl estradioL 0.25-35 mg-mcg per tablet 2021-06 2 00:00: 00 Yes [id number] 1{tbl} Take 1 tablet by mouth in the morning. [facility] norgestimat e-ethinyl estradioL 0.25-35 mg-mcg per tablet 2021-06 2 00:00: 00 Yes [id number] 1{tbl} Take 1 tablet by mouth in the morning. [facility] norgestimat e-ethinyl estradioL 0.25-35 mg-mcg per tablet 2021-06 2- 00:00: 00 Yes [id number] 1{tbl} Take 1 tablet by mouth in the morning. [facility] norgestimat e-ethinyl estradioL 0.25-35 mg-mcg per tablet 2021-06 2- 00:00: 00 Yes [id number] 1{tbl} Take 1 tablet by mouth in the morning. [facility] norgestimat e-ethinyl estradioL 0.25-35 mg-mcg per tablet 2021-06 2 00:00: 00 Yes [id number] 1{tbl} Take 1 tablet by mouth in the morning. [facility] norgestimat e-ethinyl estradioL 0.25-35 mg-mcg per tablet 2021-06 00:00: 00 Yes [id number] 1{tbl} Take 1 tablet by mouth in the morning. [facility] lactic acid-citric -potassium (PHEXXI) 1.8-1-0.4 % Gel 2021-0 24 00:00: 00 Yes [id number] 1{appli cator} Insert 1 Applicator into vagina as needed (sex). [facility] lactic acid-citric -potassium (PHEXXI) 1.8-1-0.4 % Gel 2021-0 24 00:00: 00 Yes [id number] 1{appli cator} Insert 1 Applicator into vagina as needed (sex). [facility] lactic acid-citric -potassium (PHEXXI) 1.8-1-0.4 % Gel 2021-0 24 00:00: 00 Yes [id number] 1{appli cator} Insert 1 Applicator into vagina as needed (sex). [facility] lactic acid-citric -potassium (PHEXXI) 1.8-1-0.4 % Gel 2021-0 -24 00:00: 00 Yes [id number] 1{appli cator} Insert 1 Applicator into vagina as needed (sex). [facility] lactic acid-citric -potassium (PHEXXI) 1.8-1-0.4 % Gel 2022-0 5-24 00:00: 00 Yes [id number] 1{appli cator} Insert 1 Applicator into vagina as needed (sex). [facility] lactic acid-citric -potassium (PHEXXI) 1.8-1-0.4 % Gel 2022-0 5-24 00:00: 00 Yes [id number] 1{appli cator} Insert 1 Applicator into vagina as needed (sex). [facility] lactic acid-citric -potassium (PHEXXI) 1.8-1-0.4 % Gel 2022-0 5-24 00:00: 00 Yes [id number] 1{appli cator} Insert 1 Applicator into vagina as needed (sex). [facility] lactic acid-citric -potassium (PHEXXI) 1.8-1-0.4 % Gel 2022-0 5-24 00:00: 00 Yes [id number] 1{appli cator} Insert 1 Applicator into vagina as needed (sex). [facility] lactic acid-citric -potassium (PHEXXI) 1.8-1-0.4 % Gel 2022-0 5-24 00:00: 00 Yes [id number] 1{appli cator} Insert 1 Applicator into vagina as needed (sex). [facility] lactic acid-citric -potassium (PHEXXI) 1.8-1-0.4 % Gel 2-0 524 00:00: 00 Yes [id number] 1{appli cator} Insert 1 Applicator into vagina as needed (sex). [facility] lactic acid-citric -potassium (PHEXXI) 1.8-1-0.4 % Gel 2022-0 5-24 00:00: 00 Yes [id number] 1{appli cator} Insert 1 Applicator into vagina as needed (sex). [facility] lactic acid-citric -potassium (PHEXXI) 1.8-1-0.4 % Gel 2022-0 5-24 00:00: 00 Yes [id number] 1{appli cator} Insert 1 Applicator into vagina as needed (sex). [facility] lactic acid-citric -potassium (PHEXXI) 1.8-1-0.4 % Gel 2021-0 11-05 00:00: 00 Yes [id number] 1{appli cator} Insert 1 Applicator into vagina as needed (sex). [facility] lactic acid-citric -potassium (PHEXXI) 1.8-1-0.4 % Gel 2021-0 11-05 00:00: 00 Yes [id number] 1{appli cator} Insert 1 Applicator into vagina as needed (sex). [facility] lactic acid-citric -potassium (PHEXXI) 1.8-1-0.4 % Gel 2021-0 11-05 00:00: 00 Yes [id number] 1{appli cator} Insert 1 Applicator into vagina as needed (sex). [facility] lactic acid-citric -potassium (PHEXXI) 1.8-1-0.4 % Gel 2021-0 11-05 00:00: 00 Yes [id number] 1{appli cator} Insert 1 Applicator into vagina as needed (sex). [facility] lactic acid-citric -potassium (PHEXXI) 1.8-1-0.4 % Gel 2021-0 11-05 00:00: 00 Yes [id number] 1{appli cator} Insert 1 Applicator into vagina as needed (sex). [facility] lactic acid-citric -potassium (PHEXXI) 1.8-1-0.4 % Gel 2021-0 11-05 00:00: 00 Yes [id number] 1{appli cator} Insert 1 Applicator into vagina as needed (sex). [facility] lactic acid-citric -potassium (PHEXXI) 1.8-1-0.4 % Gel 2021-0 11-05 00:00: 00 Yes [id number] 1{appli cator} Insert 1 Applicator into vagina as needed (sex). [facility] lactic acid-citric -potassium (PHEXXI) 1.8-1-0.4 % Gel 2021-0 11-05 00:00: 00 Yes [id number] 1{appli cator} Insert 1 Applicator into vagina as needed (sex). [facility] lactic acid-citric -potassium (PHEXXI) 1.8-1-0.4 % Gel 11-05 00:00: 00 Yes [id number] 1{appli cator} Insert 1 Applicator into vagina as needed (sex). [facility] lactic acid-citric -potassium (PHEXXI) 1.8-1-0.4 % Gel 11-05 00:00: 00 11-05 00:00 :00 No 1{appli cator} Insert 1 Applicator into vagina as needed (sex). [facility] Vital Signs Vital Name Observation Time Observation Value Comments S ource Systolic blood pressure 2022-08-13 01:08:08 122 mm[Hg] [facility] Diastolic blood pressure 2022-08-13 01:08:08 84 mm[Hg] [facility] Heart rate 2022-08-13 01:08:08 92 /min [facility] Body temperature 2022-08-13 01:08:08 37.61 Maki [facility] Respiratory rate 2022-08-13 01:08:08 18 /min [facility] Body height 2022-08-12 20:07:00 172.7 cm [facility] Body weight 2022-08-12 20:07:00 90.719 kg [facility] BMI 2022-08-12 20:07:00 30.41 kg/m2 [facility] Oxygen saturation in Arterial blood by Pulse oximetry 2022-08-12 20:07:00 100 /min [facility] Systolic blood pressure 2022-07-31 19:14:00 128 mm[Hg] [facility] Diastolic blood pressure 2022-07-31 19:14:00 79 mm[Hg] [facility] Heart rate 2022-07-31 19:14:00 88 /min [facility] Body temperature 2022-07-31 19:14:00 36.72 Maki [facility] Respiratory rate 2022-07-31 19:14:00 17 /min [facility] Body height 2022-07-31 19:14:00 172.7 cm [facility] Body weight 2022-07-31 19:14:00 92.035 kg [facility] BMI 2022-07-31 19:14:00 30.85 kg/m2 [facility] Systolic blood pressure 2022-07-22 17:00:00 121 mm[Hg] [facility] Diastolic blood pressure 2022-07-22 17:00:00 83 mm[Hg] [facility] Heart rate 2022-07-22 17:00:00 114 /min Un[facility] Body temperature 2022-07-22 17:00:00 36.72 Maki [facility] Respiratory rate 2022-07-22 17:00:00 16 /min [facility] Body height 2022-07-22 17:00:00 172.7 cm [facility] Body weight 2022-07-22 17:00:00 91.4 kg [facility] BMI 2022-07-22 17:00:00 30.64 kg/m2 [facility] Systolic blood pressure 2022-04-08 13:26:00 114 mm[Hg] [facility] Diastolic blood pressure 2022-04-08 13:26:00 76 mm[Hg] [facility] Heart rate 2022-04-08 13:26:00 76 /min [facility] Body temperature 2022-04-08 13:26:00 36.67 Maki [facility] Respiratory rate 2022-04-08 13:26:00 18 /min [facility] Body height 2022-04-08 13:26:00 172.7 cm [facility] Body weight 2022-04-08 13:26:00 92.987 kg [facility] BMI 2022-04-08 13:26:00 31.17 kg/m2 [facility] Systolic blood pressure 2022-03-10 18:54:00 122 mm[Hg] [facility] Diastolic blood pressure 2022-03-10 18:54:00 86 mm[Hg] [facility] Heart rate 2022-03-10 18:54:00 87 /min [facility] Body temperature 2022-03-10 18:54:00 36.78 Maki [facility] Respiratory rate 2022-03-10 18:54:00 16 /min [facility] Body height 2022-03-10 18:54:00 170.2 cm [facility] Body weight 2022-03-10 18:54:00 95.573 kg [facility] BMI 2022-03-10 18:54:00 33.00 kg/m2 [facility] Oxygen saturation in Arterial blood by Pulse oximetry 2022-03-10 18:54:00 96 /min [facility] Systolic blood pressure 2021-11-05 20:10:00 107 mm[Hg] [facility] Diastolic blood pressure 2021-11-05 20:10:00 74 mm[Hg] [facility] Heart rate 2021-11-05 20:10:00 67 /min [facility] Body temperature 2021-11-05 20:10:00 36.78 Maki [facility] Respiratory rate 2021-11-05 20:10:00 16 /min [facility] Body height 2021-11-05 20:10:00 170.2 cm [facility] Body weight 2021-11-05 20:10:00 96.616 kg [facility] BMI 2021-11-05 20:10:00 33.36 kg/m2 [facility] Oxygen saturation in Arterial blood by Pulse oximetry 2021-11-05 20:10:00 98 /min [facility] Procedures Procedure Date / Time Performed Performing Clinician Source US FIRST TRIMESTER LESS THAN 14 WEEKS WITH TRANSVAGINAL 2022-08-12 23:31:16 Collin White [facility] COMP. METABOLIC PANEL ([id number]) 2022-08-12 20:20:00 Collin White [facility] TOTAL BETA HCG ASSAY 2022-08-12 20:20:00 Collin White [facility] CBC WITH DIFF 2022-08-12 20:20:00 Collin White [facility] URINALYSIS 2022-08-12 20:20:00 Collin White [facility] CONSENT/REFUSAL FOR DIAGNOSIS AND TREATMENT 2022-08-12 19:42:25 Doctor Unassigned, [place] [facility] FIRST TRIMESTER LESS THAN 14 WEEKS WITH TRANSVAGINAL 2022-07-31 23:09:55 Robert Russell [facility] POCT TEST 2022-07-31 00:00:00 Ela Russell [facility] ASSIGNMENT OF BENEFITS 2022-03-10 18:41:33 Thoto jose roberto Unassigned, [place] [facility] Encounters Start Date/Time End Date/Time Encounter Type Admission Type Attending [facility] Facility Care Department Encounter ID Source 2023-01-24 00:00:00 2023-01-24 00:00:00 Outpatient GC_SWHASLWC _NguyenC PRIV PRIV [id number] [facility] 2022-12-27 00:00:00 2022-12-27 00:00:00 Outpatient GC_SWHASLWC _NguyenC PRIV PRIV [id number] [facility] 2022-11-29 00:00:00 2022-11-29 00:00:00 Outpatient GC_SWHASLWC _NguyenC PRIV PRIV [id number] [facility] 2022-11-12 00:00:00 2022-11-12 00:00:00 Outpatient GC_SWHASLWC _NguyenC PRIV PRIV [id number] [facility] 2022-11-06 00:00:00 2022-11-06 00:00:00 Outpatient GC_SWHASLWC _NguyenC PRIV PRIV [id number] [facility] 2022-11-03 00:00:00 2022-11-03 00:00:00 Outpatient GC_SWHASLWC _NguyenC PRIV PRIV [id number] [facility] 2022-08-12 14:07:00 2022-08-12 19:43:00 Emergency X VASUT, COLLIN [facility] ERT [id number] [facility] 2022-08-12 14:07:00 2022-08-12 19:43:00 Emergency Vasut, Collin J [facility] 1..840.114 350.1.13.10 4.2.7.2.686 [id number] [facility] 2022-08-12 00:00:00 2022-08-12 00:00:00 [facility] 1.840.114 350.1.13.10 4.2.7.2.686 [id number] [facility] 2022-08-07 16:00:00 2022-08-07 16:00:00 Outpatient R [facility] [id number] [facility] 2022-08-07 13:15:00 2022-08-07 13:30:00 Front End Software Engineer Visit Lab, Keanu - Shlomo Russell [facility] 1..840.114 350.1.13.10 4.2.7.2.686 [id number] [facility] 2022-08-07 13:15:00 2022-08-07 13:18:13 [facility] [id number] [facility] 2022-08-01 00:00:00 2022-08-01 00:00:00 Telephone [facility] 1..840.114 350.1.13.10 4.2.7.2.686 [id number] [facility] 2022-07-31 15:45:49 2022-07-31 23:59:00 Hospital Encounter Robert Russell [facility] 1.2.840.114 350.1.13.10 4.2.7.2.686 [id number] [facility] 2022-07-31 16:15:00 2022-07-31 16:30:00 Front End Software Engineer Visit Pob, Adc Lab Main Robert Russell [facility] 1.2.840.114 350.1.13.10 4.2.7.2.686 [id number] [facility] 2022-07-31 13:30:00 2022-07-31 13:30:00 Initial Visit Robert Russell [facility] 1.2.840.114 350.1.13.10 4.2.7.2.686 [id number] [facility] 2022-07-31 13:30:00 2022-07-31 13:26:13 Outpatient R ROBERT RUSSELL CHERYAL [facility] [id number] [facility] 2022-07-29 00:00:00 2022-07-29 00:00:00 Telephone AdRima pop [facility] 1.2.840.114 350.1.13.10 4.2.7.2.686 [id number] [facility] 2022-07-22 10:30:00 2022-07-22 11:00:00 Office Visit Rima Rutherford [facility] 1.2.840.114 350.1.13.10 4.2.7.2.686 [id number] [facility] 2022-07-22 10:30:00 2022-07-22 10:30:00 [facility] [id number] [facility] 2022-07-09 09:00:2022-07-09 09:00:00 Outpatient R RIMA RUTHERFORD [facility] [id number] [facility] 2022-05-19 00:00:00 2022-05-19 00:00:00 Telephone AdumRima [facility] 1.84.114 350.1.13.10 4.2.7.2.686 [id number] [facility] 2022-04-08 08:30:00 2022-04-08 08:44:54 Office Visit AdumRima [facility] 1..114 350.1.13.10 4.2.7.2.686 [id number] [facility] 2022-04-08 08:30:00 2022-04-08 08:44:54 Outpatient R HUYEN [facility] [id number] [facility] 2022-03-19 00:00:00 2022-03-19 00:00:00 Outpatient R NAYAN [facility] [id number] [facility] 2022-03-12 08:30:00 2022-03-12 08:34:22 Front End Software Engineer Visit Lab, Keanu [facility] 1.840.114 350.1.13.10 4.2.7.2.686 [id number] [facility] 2022-03-12 08:30:00 2022-03-12 08:30:00 Outpatient R NAYAN [facility] [id number] [facility] 2022-03-10 14:00:00 2022-03-10 14:25:50 Outpatient R NAYAN [facility] [id number] [facility] 2022-03-10 14:00:00 2022-03-10 14:25:50 Office Visit Nayan [facility] 1.2.840.114 350.1.13.10 4.2.7.2.686 [id number] [facility] 2022-03-10 00:00:00 2022-03-10 00:00:00 Orders Only Doctor Unassigned, [place] [facility] 1.2.840.114 350.1.13.10 4.2.7.2.686 [id number] [facility] 2021-11-05 15:00:00 2021-11-05 16:20:14 Outpatient R VITALIY SPICER [facility] [id number] [facility] 2021-11-05 15:00:00 2021-11-05 16:20:14 Office Visit NayanLouien [facility] 1.2.840.114 350.1.13.10 4.2.7.2.686 [id number] [facility] 2021-11-05 00:00:00 2021-11-05 00:00:00 Orders Only Doctor Unassigned, [place] [facility] 1.2.840.114 350.1.13.10 4.2.7.2.686 [id number] [facility] 2021-07-02 00:00:00 2021-07-02 00:00:00 Orders Only Doctor Unassigned, [place] [facility] 1.2.840.114 350.1.13.10 4.2.7.2.686 [id number] [facility] 2021-06-27 00:00:00 2021-06-27 00:00:00 Pre Visit Outreach Stallings Shara Britney BERNARDOJovan PAEZ PLAESTEPHANIE 1.2.840.114 350.1.13.10 4.2.7.2.686 [id number] [facility] 2020-09-18 10:30:00 2020-09-18 10:30:00 Outpatient R VITALIY SPICER [facility] [id number] [facility] 2020-09-18 00:00:00 2020-09-18 00:00:00 Orders Only Doctor Unassigned, [place] [facility] 1.2.840.114 350.1.13.10 4.2.7.2.686 [id number] [facility] Results Test Description Test Time Test Comments Results Result Co mments [id number][facility]12 21:03:24* Test Item Value Reference Range Interpretation Comme nts NA (test code = 5624119939) 136 mmol/L 135-145 K (test code = 8047689908) 3.7 mmol/L 3.5-5.0 CL (test code = 9991198462) 102 mmol/L 98-108 CO2 TOTAL (test code = 7540632580) 25 mmol/L 23-31 AGAP (test code = 4419210843) 9 2-16 BUN (test code = 8618163246) 17 mg/dL 7-23 GLUCOSE (test code = 5782912748) 102 mg/dL 70-110 CREATININE (test code = 7052232582) 0.84 mg/dL 0.50-1.04 TOTAL BILI (test code = 6999966932) 0.7 mg/dL 0.1-1.1 CALCIUM (test code = 4587323204) 8.8 mg/dL 8.6-10.6 T PROTEIN (test code = 4254772442) 7.4 g/dL 6.3-8.2 ALBUMIN (test code = 7175805027) 4.3 g/dL 3.5-5.0 ALK PHOS (test code = 2417440539) 38 U/L 34-122 ALTv (test code = 1742-6) 17 U/L 5-35 AST(SGOT) (test code = 2697696882) 20 U/L 13-40 eGFR (test code = 2782675011) 78.1 mL/min/1.73m2 HAYDER (test code = HAYDER) [...] or urine or abnormalities in imaging tests). [facility] WITH [id number] 20:36:51* Test Item Value Reference Range Interpretation Comme nts WBC (test code = 6690-2) 11.60 See_Comment H [Automated [employer]] The system which generated this result transmitted reference range: 4.30 - 11.10 10*3/?L. The reference range was not used to interpret this result as normal/abnormal. RBC (test code = 789-8) 4.25 See_Comment [Automated [employer]] The system which generated this result transmitted [...] 33.7 g/dL 31.6-35.1 RDW-SD (test code = 50035-1) 40.4 fL 39.0-49.9 RDW-CV (test code = 788-0) 12.5 % 12.0-15.5 PLT (test code = 777-3) 197 See_Comment [Automated [employer] ge] The system which generated this result transmitted reference range: 166 - 358 10*3/?L. The reference range was not used to interpret this result as normal/abnormal. MPV (test code = 32690-9) 9.6 fL 9.5-12.9 NRBC/100 WBC (test code = 0737549005) 0.0 See_Comment [Automated [employer] ssage] The system which generated this result transmitted reference range: 0.0 - 10.0 /100 WBCs. The reference range was not used to interpret this result as normal/abnormal. NRBC x10^3 (test code = 6590960885) See_Comment [Automated [employer] ge] The system which generated this result transmitted reference range: 10*3/?L. The reference range was not used to interpret this result as normal/abnormal. GRAN MAT (NEUT) % (test code = 770-8) 77.8 % IMM GRAN % (test code = 4915127237) 0.30 % LYMPH % (test code = 736-9) 15.5 % MONO % (test code = 5905-5) 3.8 % EOS % (test code = 713-8) 2.2 % BASO % (test code = 706-2) 0.4 % GRAN MAT x10^3(ANC) (test code = 9844649765) 9.03 10*3/uL 1.88-7.09 H IMM GRAN x10^3 (test code = 2998990933) 0.03 10*3/uL 0.00-0.06 LYMPH x10^3 (test code = 731-0) 1.80 10*3/uL 1.32-3.29 MONO x10^3 (test code = 742-7) 0.44 10*3/uL 0.33-0.92 EOS x10^3 (test code = 711-2) 0.25 10*3/uL 0.03-0.39 BASO x10^3 (test code = 704-7) 0.05 10*3/uL 0.01-0.07 Lab Interpretation (test code = 55929-6) [id number]* Test Item Value Reference Range Interpretation Comme nts POCT PREG (test code = 1605) Positive On board controls acceptable with C Line (test code = 3574) Yes POCT PREG LOT # (test code = 3575) POCT PREG TEST DATE ( test code = 3576) [facility]"
[2023-09-02 10:22] LABS: Absolute Lymphocytes (CBC) 1.6 K/uL (0.7-4.9); Absolute Monocytes 0.5 K/uL (0.1-1.3); Absolute Neutrophil 9.7 K/uL (1.8-8.0); Basophils % 0.3 % (0-1.3); Eosinophils % 0.3 % (0-4.4); Hematocrit 28.5 % (36.0-45.0); Hemoglobin 10.1 g/dL (12.0-15.0); Lymphocytes % 13.2 % (15.3-44.8); MCH 30.8 pg (27.0-35.0); MCHC 35.5 g/dL (32.0-36.0); MCV 86.8 fL (80-100); MPV 7.1 fL (7.6-11.3); Monocytes % 4.1 % (3.3-12.3); Neutrophils % 82.1 % (41.7-73.7); Nucleated Red Blood Cells % 0.1 % (0-0); Platelets 174 thou/uL (152-406); RBC Red Blood Cell Count 3.28 M/uL (3.86-4.86); Red Cell Distribution Width 13.2 % (12.1-15.2)
[2023-09-02 10:22] LABS: Specific Gravity 1.012 (1.005-1.030)
[2023-09-02 10:25] LABS: Specific Gravity 1.012 (1.005-1.030); Sqamous Epithelial <5 /HPF (None Seen); Urine Bacteria None Seen /HPF (<20); Urine Bilirubin NEGATIVE (Negative); Urine Blood 3+ (OVER) (Negative); Urine Clarity Extremely Turbid (Clear); Urine Color Light-Yellow (Yellow); Urine Culture Reflex Order REFLEXED; Urine Glucose NEGATIVE (Negative); Urine Ketones NEGATIVE (Negative); Urine Microscopic Reflex YN ORDER UMIC; Urine Mucus Slight /HPF (None Seen); Urine Nitrite NEGATIVE (Negative); Urine Protein NEGATIVE (Negative); Urine Urobilinogen Normal (Normal); Urine WBC >50 /HPF (<5); Urine Yeast (Budding) Trace /HPF (None Seen)
[2023-09-02 10:51] LABS: Albumin/Globulin Ratio 0.9 (1.1-1.8); Anion Gap 8.3 mEq/L (5.0-15.0); Bilirubin Total 0.4 mg/dL (0.2-1.0); Globulin 3.4 g/dL (2.3-3.5); Potassium 3.3 mEq/L (3.5-5.1); Protein, Total 6.4 g/dL (6.4-8.2)
--- NOTE | 2023-09-02 11:35 | RAD REPORT ---
EXAM DESCRIPTION: US - Pelvis Complete - 09/02/2023 10:53 am CLINICAL HISTORY: RETAINED POC COMPARISON: 3D DIAG UNI F/U dated 01/29/2022; 3D SCR BIJU BILAT W/CAD dated 01/07/2022; 3D SCR BIJU BILA T W/CAD dated 09/03/2018No comparisons TECHNIQUE: Sonographic grayscale and color flow images of the pelvis were obtained through transabd ominal and transvaginal approaches. FINDINGS: The uterus is mildly enlarged in size compatible with post gravid changes. The uterus antonio ures 13.7 cm in length. The endometrial stripe measures 3.9 cm in thickness and demonstrates heterogeneous fluid components i n the lower uterine segment. Lobulated hyperechoic vascularized component near the fundus suggesting retained products of conception. Both ovaries are normal in size, shape and echotexture. The right ovary measures 3.2 x 2.9 x 2.3 cm. The left ovary measures 2.9 x 2.3 x 1.8 cm. Small left ovarian cyst measuring 1.5 x 1.4 x 1.3 cm, s een on transabdominal approach only. No adnexal masses. Normal Doppler blood flow was demonstrated to both ovaries. No significant pelvic ascites. IMPRESSION: Lobulated hyperechoic vascularized soft tissue components near the fundus suggesting ret ained products of conception.
--- NOTE | 2023-09-02 11:36 | RAD REPORT ---
EXAM DESCRIPTION: US - Transvaginal Study Probe - 09/02/2023 10:53 am CLINICAL HISTORY: recent miscarriage, eval for retained POC COMPARISON: No comparisonsPelvis Complete dated 09/02/2023 TECHNIQUE: Sonographic grayscale and color flow images of the pelvis were obtained through transabd ominal and transvaginal approaches. FINDINGS: The uterus is mildly enlarged in size compatible with post gravid changes. The uterus antonio ures 13.7 cm in length. The endometrial stripe measures 3.9 cm in thickness and demonstrates heterogeneous fluid components i n the lower uterine segment. Lobulated hyperechoic vascularized component near the fundus suggesting retained products of conception. Both ovaries are normal in size, shape and echotexture. The right ovary measures 3.2 x 2.9 x 2.3 cm. The left ovary measures 2.9 x 2.3 x 1.8 cm. Small left ovarian cyst measuring 1.5 x 1.4 x 1.3 cm, s een on transabdominal approach only. No adnexal masses. Normal Doppler blood flow was demonstrated to both ovaries. No significant pelvic ascites. IMPRESSION: Lobulated hyperechoic vascularized soft tissue components near the fundus suggesting ret ained products of conception.
--- NOTE | 2023-09-02 12:04 | ER ---
Nurse's Notes [facility] Name: Fiona Azar Age: 32 yrs Sex: Female : 1990 Arrival Date: 09/02/2023 Time: 09:32 Bed 13 Private MD: Diagnosis: Retained Products of Conception Presentation: 09/01 09:40 Chief complaint: Patient states: Miscarriage on Thursday. Been fatigued, body aches, ll1 chills, low grade fever, no appetite, constipation, oliguria, sudden urge to urinate, SANCHEZ off/on since. Coronavirus screen: Client denies travel out of the [place] in the last 14 days. At this time, the client does not indicate any symptoms associated with coronavirus-19. Ebola Screen: Patient denies travel to an Ebola-affected area in the 21 days before illness onset. Initial Sepsis Screen: Does the patient meet any 2 criteria? No. Patient's initial sepsis screen is negative. Does the patient have a suspected source of infection? No. Patient's initial sepsis screen is negative. Risk Assessment: Do you want to hurt yourself or someone else? Patient reports no desire to harm self or others. Onset of symptoms was August 29, 2023. 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 - Social history:: Smoking status: Patient denies any tobacco usage or history of. Screenin:[facility] ED Fall Risk Assessment (Adult) History of falling in the last 3 months, mb9 including since admission No falls in past 3 months (0 pts) Confusion or Disorientation No (0 pts) Intoxicated or Sedated No (0 pts) Impaired Gait No (0 pts) Mobility Assist Device Used No (0 pt) Altered Elimination No (0 pt) Score/Fall Risk Level 0 - 2 = Low Risk Oriented to surroundings, Maintained a safe environment, Educated pt \T\ family on fall prevention, incl call for assistance when getting out of bed. Abuse screen: Denies threats or abuse. Nutritional screening: No deficits noted. Tuberculosis screening: No symptoms or risk factors identified. Assessment: 10:15 General: Appears in no apparent distress. Behavior is anxious, crying. Pain: Complains mb9 of pain in abdomen Pain radiates to pelvis and left leg Pain currently is 3 out of 10 on a pain scale. Quality of pain is described as crampy, throbbing, Pain began 2-3 days ago. Is continuous. Neuro: Duke Agitation-Sedation Scale (RASS): 0 - Alert and Calm Level of Consciousness is awake, alert, obeys commands, Oriented to person, place, time, situation, Appropriate for age. Cardiovascular: Heart tones S1 S2 present Patient's skin is warm and dry. Respiratory: Airway is patent Respiratory effort is even, unlabored, Respiratory pattern is regular, symmetrical, Breath sounds are clear bilaterally. GI: Abdomen is round non-distended, Bowel sounds present X 4 quads. Abd is soft Abdomen is tender to palpation in right upper quadrant, left upper quadrant, right lower quadrant and left lower quadrant Reports cramping, nausea. : Reports cramping, in bilateral upper quadrant(s) lower quadrant(s) vaginal bleeding that is bright red, heavy flow. EENT: No signs and/or symptoms were reported regarding the EENT system. Derm: Skin is pink, warm \T\ dry. Musculoskeletal: Range of motion: intact in all extremities. 11:38 Reassessment: No changes from previously documented assessment. Patient and/or family mb9 updated on plan of care and expected duration. Pain level reassessed. Patient is alert, oriented x 3, equal unlabored respirations, skin warm/dry/pink. 12:32 Reassessment: No changes from previously documented assessment. Patient and/or family mb9 updated on plan of care and expected duration. Pain level reassessed. Patient is alert, oriented x 3, equal unlabored respirations, skin warm/dry/pink. 13:36 Reassessment: No changes from previously documented assessment. Patient and/or family mb9 updated on plan of care and expected duration. Pain level reassessed. Patient is alert, oriented x 3, equal unlabored respirations, skin warm/dry/pink. 14:33 Reassessment: report given to EMS. Reassessment: No changes from previously mb9 documented assessment. Patient and/or family updated on plan of care and expected duration. Pain level reassessed. Patient is alert, oriented x 3, equal unlabored respirations, skin warm/dry/pink. Vital Signs: 09:40 BP 130 / 78; Pulse 91; Resp 16; Temp 97.5; Pulse Ox 100% ; Weight 90.72 kg; Height 5 ll1 ft. 8 in. ; Pain 3/10; 10:17 BP 127 / 96; Pulse 88; Resp 18; Pulse Ox 100% on R/A; mb9 11:38 BP 122 / 75; Pulse 75; Resp 16; Pulse Ox 100% on R/A; mb9 13:36 BP 129 / 80; Pulse 84; Resp 16; Temp 98(T); Pulse Ox 100% on R/A; mb9 09:40 Body Mass Index 30.41 (90.72 kg, 172.72 cm) ll1 09:40 Pain Scale: Adult 1 ED Course: 09:35 Patient arrived in ED. mg5 09:40 Arm band placed on Patient placed in an exam room, on a stretcher. ll1 09:42 Triage completed. ll1 09:43 Alexx Colin MD is Attending Physician. ec2 09:50 Nathalia Schulz RN is Primary Nurse. mb9 09:51 Placed in gown. Bed in low position. Call light in reach. Side rails up X 1. Client mb9 placed on continuous cardiac and pulse oximetry monitoring. NIBP monitoring applied. residential monitor on. 10:15 Patient taken to ultrasound. mb9 10:15 CBC with Diff Sent. mb9 10:15 CMP Sent. mb9 10:15 Lipase Sent. mb9 10:15 Test, Urine Sent. mb9 10:15 Urinalysis w/ reflexes Sent. mb9 10:15 HCG-Quantitative Sent. mb9 10:17 No provider procedures requiring assistance completed. Inserted saline lock: 20 gauge mb9 in right antecubital area, using aseptic technique. Blood collected. 10:30 Provided Education on: press call light if needing anything. mb9 10:53 Transvaginal Study Probe In Process Unspecified. EDMS 10:54 Pelvis Complete In Process Unspecified. EDMS 12:18 First set of blood cultures drawn by mi. mb9 12:25 Second set of blood cultures drawn by me. mb9 12:32 Assist provider with pelvic exam: Set up pelvic tray. Performed by Alexx Colin MD mb9 Patient tolerated well. 12:32 Inserted saline lock: 20 gauge in left antecubital area, using aseptic technique. mb9 12:34 initiated transfer to [facility], pt denied at all [facility] hospitals due to being on bd saturation. 12:45 initiated transfer to [facility]. bd 13:32 pt accepted in transfer to [facility] ER by dr Diana admin approval bd given by Ashia Crowe. 13:36 Patient transferred, IV remains in place. mb9 Administered Medications: 10:10 Drug: metoCLOPramide IVP 10 mg IVP once; over 1 to 2 minutes Route: IVP; Site: right mb9 antecubital; 12:33 Follow up: Response: No adverse reaction mb9 10:15 Drug: NS 0.9% IV 1000 ml IV at 1 bolus Per protocol; 1000 mL bolus Route: IV; Rate: 1 mb9 bolus; Site: right antecubital; 13:03 Follow up: Response: No adverse reaction; IV Status: Completed infusion mb9 10:15 Drug: diphenhydrAMINE IVP 25 mg IVP once Route: IVP; Site: right antecubital; mb9 12:33 Follow up: Response: No adverse reaction mb9 10:55 Drug: Rocephin IV 1 grams IV at calculated rate once; Given slow IV push per pharmacy mb9 instructions Route: IV; Rate: calculated rate; Site: right antecubital; 12:33 Follow up: Response: No adverse reaction; IV Status: Completed infusion mb9 12:33 Drug: metroNIDAZOLE IVPB 500 mg 100 ml IVPB at 200 ml/hr once over 30 mins Volume: 100 mb9 ml; Route: IVPB; Rate: 200 ml/hr; Infused Over: 30 mins; Site: left antecubital; 13:03 Follow up: Response: No adverse reaction; IV Status: Completed infusion mb9 13:03 Drug: vibramycin - Doxycycline IVPB 100 mg IVPB at 100 ml/hr once; (mix in 100 ml NS) mb9 Route: IVPB; Rate: 100 ml/hr; Site: right antecubital; 13:43 Follow up: Response: No adverse reaction; IV Status: Completed infusion mb9 13:09 Drug: Acetaminophen PO 1000 mg PO once Route: PO; mb9 13:43 Follow up: Response: No adverse reaction mb9 14:48 Drug: diphenhydrAMINE IVP 25 mg IVP once Route: IVP; Site: left antecubital; mb9 14:53 Follow up: Response: No adverse reaction mb9 14:49 Drug: Ondansetron IVP 4 mg IVP once; over 2 minutes Route: IVP; Site: right antecubital;mb9 14:53 Follow up: Response: No adverse reaction mb9 Medication: 09:52 VIS not applicable for this client. mb9 Outcome: 12:03 ER care complete, transfer ordered by . ec2 13:43 Transferred by ground EMS Transfer form completed. X-rays sent w/ patient. Note: mb9 Report given to transferring nurse MARTELL Barrera 13:43 Condition: stable 13:43 Instructed on the need for transfer, 14:44 Patient left the ED. mb9 14:53 Patient left the ED. mb9 Signatures: Dispatcher [employer] Loida Liu Lynsay, RN RN ll1 Nathalia Schulz RN RN mb9 Kay Brar mg5 Alexx Colin MD MD ec2
--- NOTE | 2023-09-02 12:04 | EDPHYS ---
Physician Documentation [facility] Name: Fiona Azar Age: 32 yrs Sex: Female : 1990 Arrival Date: 09/02/2023 Time: 09:32 Bed 13 Private MD: ED Physician Alexx Colin HPI: 09/01 09:56 This 32 yrs old Female presents to ER via Ambulatory with complaints of Constipation, ec2 Urinary Problem, Fever. 09:56 Patient arrives today for evaluation of urinary complaints along with bodyaches and ec2 recent miscarriage. Patient reports that she had a miscarriage 4 days ago. Patient reports that she been having some abdominal cramping is still having some spotting. Patient reports some fevers and chills as well. Complains of bodyaches as well as headaches. Patient reports she is drinking fluids without issue, denies any cough and cold symptoms. Patient reports that she is having some constipation and most recently had a bowel movement approximately 3 days ago. Reports no significant medical problems, no daily medications. Reports some dysuria and decreased urinary frequency as well.. 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 - Social history:: Smoking status: Patient denies any tobacco usage or history of. ROS: 09:56 Constitutional: as per hpi ec2 Exam: 09:56 Constitutional: GEN: NAD Head: atraumatic Eyes: EOMI Ears: External ears are ec2 normal. CV: regular rate LUNGS: no respiratory distress ABD: non-distended, soft, generally tender, no guarding, not rigid SKIN: no evidence of rashes MSK: no evidence of trauma NEURO: moves all extremities equally Vital Signs: 09:40 BP 130 / 78; Pulse 91; Resp 16; Temp 97.5; Pulse Ox 100% ; Weight 90.72 kg; Height 5 ll1 ft. 8 in. ; Pain 3/10; 10:17 BP 127 / 96; Pulse 88; Resp 18; Pulse Ox 100% on R/A; mb9 11:38 BP 122 / 75; Pulse 75; Resp 16; Pulse Ox 100% on R/A; mb9 13:36 BP 129 / 80; Pulse 84; Resp 16; Temp 98(T); Pulse Ox 100% on R/A; mb9 09:40 Body Mass Index 30.41 (90.72 kg, 172.72 cm) ll1 09:40 Pain Scale: Adult ll1 MDM: 09:49 Patient medically screened. ec2 09:56 Data reviewed: vital signs. ED course: Patient arrives today for evaluation of lower ec2 abdominal pain along with recent miscarriage. Examination remarkable for well-appearing nontoxic dividual with abdominal exam as noted above. Will obtain lab work, ultrasound, urine studies. Evaluating for dehydration, electrolyte disturbances, retained proximal conception.. 10:48 ED course: CBC shows leukocytosis, slight anemia noted, urine positive as ec2 expected given recent miscarriage. Urine is pertinent for WBCs and leuk esterase. . 11:03 ED course: Metabolic profile shows slight hypokalemia with potassium of 3.3. hCG at ec2 3600. Lipase within normal ranges. Pending ultrasound. . 12:03 ED course: Ultrasound shows retained products of conception near the fundus. Will add ec2 on antibiotics and transfer for obstetric care. . 12:27 ED course: I completed a pelvic examination under nurse supervision, Nathalia Abernathy RN. ec2 Patient with open cervix approximately 1 cm in size. Blood products present in the vaginal canal.. 13:07 ED course: I discussed case with physician over at another hospital who agrees to this ec2 patient for transfer. Will transfer for TAPPER OPERATOR coverage.. 09/01 09:55 Order name: CBC with Diff; Complete Time: 10:47 ec2 09/01 09:55 Order name: CMP; Complete Time: 11:03 ec2 09/01 09:55 Order name: Lipase; Complete Time: 11:03 ec2 09/01 09:55 Order name: Test, Urine; Complete Time: 10:47 ec2 09/01 09:55 Order name: Urinalysis w/ reflexes; Complete Time: 10:47 ec2 09/01 09:55 Order name: HCG-Quantitative; Complete Time: 11:03 ec2 09/01 10:29 Order name: Urine Culture EDMN 09/01 12:02 Order name: Blood Culture Adult (2) ec2 09/01 10:53 Order name: Transvaginal Study Probe; Complete Time: 12:00 EDMS 09/01 10:54 Order name: Pelvis Complete; Complete Time: 12:00 EDMS 09/01 09:55 Order name: IV Saline Lock; Complete Time: 10:15 ec2 09/01 09:55 Order name: Labs collected and sent; Complete Time: 10:15 ec2 09/01 12:02 Order name: Pelvic Exam Setup; Complete Time: 12:09 ec2 Administered Medications: 10:10 Drug: metoCLOPramide IVP 10 mg IVP once; over 1 to 2 minutes Route: IVP; Site: right 9 antecubital; 12:33 Follow up: Response: No adverse reaction mb9 10:15 Drug: NS 0.9% IV 1000 ml IV at 1 bolus Per protocol; 1000 mL bolus Route: IV; Rate: 1 mb9 bolus; Site: right antecubital; 13:03 Follow up: Response: No adverse reaction; IV Status: Completed infusion mb9 10:15 Drug: diphenhydrAMINE IVP 25 mg IVP once Route: IVP; Site: right antecubital; mb9 12:33 Follow up: Response: No adverse reaction mb9 10:55 Drug: Rocephin IV 1 grams IV at calculated rate once; Given slow IV push per pharmacy mb9 instructions Route: IV; Rate: calculated rate; Site: right antecubital; 12:33 Follow up: Response: No adverse reaction; IV Status: Completed infusion mb9 12:33 Drug: metroNIDAZOLE IVPB 500 mg 100 ml IVPB at 200 ml/hr once over 30 mins Volume: 100 mb9 ml; Route: IVPB; Rate: 200 ml/hr; Infused Over: 30 mins; Site: left antecubital; 13:03 Follow up: Response: No adverse reaction; IV Status: Completed infusion mb9 13:03 Drug: vibramycin - Doxycycline IVPB 100 mg IVPB at 100 ml/hr once; (mix in 100 ml NS) mb9 Route: IVPB; Rate: 100 ml/hr; Site: right antecubital; 13:43 Follow up: Response: No adverse reaction; IV Status: Completed infusion mb9 13:09 Drug: Acetaminophen PO 1000 mg PO once Route: PO; mb9 13:43 Follow up: Response: No adverse reaction mb9 14:48 Drug: diphenhydrAMINE IVP 25 mg IVP once Route: IVP; Site: left antecubital; mb9 14:53 Follow up: Response: No adverse reaction mb9 14:49 Drug: Ondansetron IVP 4 mg IVP once; over 2 minutes Route: IVP; Site: right antecubital;mb9 14:53 Follow up: Response: No adverse reaction mb9 Disposition Summary: 09/02/23 12:03 Transfer Ordered Notes: Transfer Location: Other Acute Care Facility ec2 Reason: Higher level of care ec2 Condition: Stable ec2 Problem: new ec2 Symptoms: have improved ec2 Accepting Physician: transferring obgyn tootie(09/02/23 14:53) mb9 Diagnosis - Retained Products of Conception ec2 Discharge Instructions: - Discharge Summary Sheet ec2 - Urinary Tract Infection, Adult ec2 Forms: - Medication Reconciliation Form ec2 - SBAR form ec2 Prescriptions: - Cephalexin 500 mg Oral capsule - take 1 capsule ORAL route every 12 hours for 5 days; 10 capsule; Refills: 0, ec2 Product Selection Permitted - Zofran 4 mg Oral Tablet - take 1 tablet ORAL route every 12 hours As needed; 20 tablet; Refills: 0, ec2 Product Selection Permitted Signatures: Dispatcher [employer] Homero Sierra RN RN ll1 Nathalia Schulz RN RN mb9 Alexx Colin MD MD ec2 Corrections: (The following items were deleted from the chart) 10:53 09:55 Transvaginal Ob+US.RAD.BRZ ordered. EDMS EDMS 14:44 12:03 transferring obgyn doc ec2 mb9 14:53 14:44 transferring obgyn doc mb9 mb9
[2023-09-02 15:53] VITALS: BP 128/64; TEMP 97.7; O2SAT 97
== END ==
LOC: ER 09:32
DX: O03.4 Incomplete spontaneous abortion without complication (principal); Z88.0 Allergy status to penicillin; Z88.1 Allergy status to other antibiotic agents
CPT/HCPCS: 87040 ×2; 87088; 85025; 81001; 87086; 36415; 81025; 84702; 83690; 80053; 76856; 76830; J2765; J1200 ×2; J2405; J7030; J0696